=== PATIENT | male | born 1995 | race Caucasian/White ===

== ENCOUNTER 2017-04-27 18:21 | Emergency (ER) | payer BC ==
[~2017-04-27] VITALS: Ht 185.4 cm; Wt 90.7 kg
[~2017-04-27 18:21] MED LIST: CEPHALEXIN500 MG PO
[2017-04-27] MEDS ORDERED: METHYLPREDNISOLO4 M1 PO (18:36)
== END 2017-04-27 18:40 | disposition home or self-care (01) ==
LOC: ED 18:21
DX: L23.9 Allergic contact dermatitis, unspecified cause (principal)
CPT/HCPCS: 99283

== ENCOUNTER 2017-12-20 23:02 | Emergency (ER) | payer BC ==
[~2017-12-20] VITALS: Ht 185.4 cm; Wt 90.7 kg
[~2017-12-20 23:02] MED LIST changes: +METHYLPREDNISOLO4 M1 PO
== END 2017-12-21 02:01 | disposition home or self-care (01) ==
LOC: ED 23:02
DX: R56.9 Unspecified convulsions (principal); Z88.2 Allergy status to sulfonamides
CPT/HCPCS: 70450; 80053; 81001; 85025; 96374; 99284; G0480; J2405; J7030

== ENCOUNTER 2019-04-06 07:08 | Emergency (ER) | payer OTHER, BC ==
[~2019-04-06] VITALS: Ht 185.4 cm; Wt 90.7 kg
== END 2019-04-06 07:53 | disposition home or self-care (01) ==
LOC: ED 07:08
DX: L30.9 Dermatitis, unspecified (principal); Z88.2 Allergy status to sulfonamides
CPT/HCPCS: 99282

== ENCOUNTER 2022-07-12 10:04 | Emergency (ER) | payer OTHER ==
[~2022-07-12] VITALS: Ht 185.4 cm; Wt 90.7 kg
[2022-07-12] MEDS ORDERED: PENICILLIN V P500 MG PO (15:53)
== END 2022-07-12 16:09 | disposition home or self-care (01) ==
LOC: ED 10:04
DX: K04.7 Periapical abscess without sinus (principal)
CPT/HCPCS: 99282

== ENCOUNTER 2024-11-13 19:41 | Emergency (ER) | payer OTHER ==
[~2024-11-13] VITALS: Ht 185.4 cm; Wt 91.0 kg
[~2024-11-13 19:41] MED LIST changes: +PENICILLIN V P500 MG PO; +PREDNISONE20 MG PO; +VENTOLIN HFA18 GM INH; +ZITHROMAX250 MG PO
--- OUTSIDE RECORDS SUMMARY | 2024-11-13 19:44 | XMS ---
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 E.D. VISIT COUNT (12 MO.) 1 [facility] NOTE: Visits indicate total known visits. ED/UCC VISIT TRACKING (12 MO.) 11/13/2024 19:42 ADELITA [place] TYPE: Emergency COMPLAINT: - BACK INJURY 11/13/2024 17:58 [place] [facility] DIAGNOSES: - Back Pain INPATIENT VISIT TRACKING (12 MO.) No inpatient visits to display in this time frame [email or web address]
[2024-11-13] MEDS ORDERED: KETOROLAC TROMETHAMINE 30 MG/ML VIAL IV ONE (20:00)
[2024-11-13] MEDS ORDERED: diazePAM 10 MG/2 ML SYR IV ONE (20:00)
[2024-11-13] MEDS ORDERED: PERCOCET 5-3251 EACH PO (22:59)
[2024-11-13 23:31] VITALS: BP 122/72
== END 2024-11-13 23:32 | disposition home or self-care (01) ==
LOC: ED 19:41
DX: S32.010A Wedge compression fracture of first lumbar vertebra, initial encounter for closed fracture (principal); S32.030A Wedge compression fracture of third lumbar vertebra, initial encounter for closed fracture; X50.1XXA Overexertion from prolonged static or awkward postures, initial encounter; Y93.44 Activity, trampolining
CPT/HCPCS: 72131; 96374; 96375; 99283-25; J1885; J3360